=== PATIENT | male | born 1980 | race Caucasian/White ===

== ENCOUNTER 2017-03-15 07:40 | Emergency (ER) | payer SELFPAY ==
[2017-03-15 08:27] LABS: Bilirubin Negative (Negative); Blood, Urine Large (Negative); Glucose, Urine (Dipstick) Negative (Negative); Leukocyte Negative (Negative); Nitrite Negative (Negative); Protein, Urine (Dipstick) Negative (Neg-Trace); Urobilinogen 0.2 mg/dL (0.2-1.0)
[2017-03-15 08:34] LABS: Clarity Slightly Cloudy (Clear)
[2017-03-15 08:35] LABS: Bacteria/HPF 1+ HPF (None Seen); RBC/HPF GREATER THAN 50-TNTC HPF (0-3)
[2017-03-15 09:35] LABS: Anion Gap 13 mmol/L (10-20); BUN (Urea Nitrogen) 14 mg/dL (8.9-20.6); Calc. Creatinine Clearance 0 mL/min (70-130); Calcium 9.4 mg/dL (7.8-10.44); Carbon Dioxide 27 mmol/L (22-29); Chloride 105 mmol/L (98-107); Estimated GFR-MDRD Greater than 90; Glucose 102 mg/dL (70-105); Potassium 4.1 mmol/L (3.5-5.1); Sodium 141 mmol/L (136-145)
[2017-03-15 09:36] LABS: Hemoglobin 13.5 g/dL (14.0-18.0); Mean Corpuscular HGB CONC 33.8 g/dL (32.0-36.0); Mean Corpuscular Hemoglobin 31.6 pg (27.0-31.0); Mean Corpuscular Volume 93.6 fl (80.0-94.0); Mean Platelet Volume 10.9 fL (7.4-10.4); Platelet Count 182 thou/uL (130-400); RBC Distribution Width 11.2 % (11.5-14.5); Red Blood Cell (RBC) Count 4.27 mill/uL (4.70-6.10); White Blood Cell (WBC) Count 5.1 thou/uL (4.8-10.8)
[2017-03-15 09:39] LABS: MDiff Complete? YES
[2017-03-15 09:45] LABS: Band 1 % (5-11); Lymphocytes 40 % (21-51); Neutrophil 52 % (42-75)
[2017-03-15 09:46] LABS: Eosinophils 4 % (0-10); Monocytes 9 % (0-10)
--- NOTE | 2017-03-15 10:18 | CT ---
PELVIC CT SCAN WITH IV CONTRAST: Date: 03/15/17 HISTORY: 37-year-old male with history of injury to perineum while weightlifting this morning. FINDINGS: No evidence for an acute pelvic fracture. The soft tissues of the perineum were not completely includ ed on this study since it did not extend caudally enough. Normal appearing appendix. No free intraper itoneal fluid or evidence for retroperitoneal hematoma within the pelvis. IMPRESSION: Unremarkable pelvic CT scan. No evidence of fracture or dislocation. No free intraperitoneal fluid or evidence for retroperitoneal hematoma. The soft tissues of the perineum were not completely included on this study. POS: [facility]
[2017-03-15] MEDS ORDERED: Iopamidol 370 76% 100 ML VIAL ONE (13:41)
== END 2017-03-15 10:40 | disposition home or self-care (01) ==
LOC: MADERS 07:40
DX: R31.9 Hematuria, unspecified (principal); F17.210 Nicotine dependence, cigarettes, uncomplicated
CPT/HCPCS: 36415; 72193; 80048; 81003; 81015; 85025; 87086

== ENCOUNTER 2017-04-05 11:40 | Emergency (ER) | payer SELFPAY ==
--- NOTE | 2017-04-05 13:29 | RAD ---
3 VIEWS RIGHT HAND: Date: 04/05/17 COMPARISON: None. HISTORY: Trauma, pain. FINDINGS: The fifth distal interphalangeal joint is fixed in flexion. There is prominent joint space narrowing with some chondral sclerosis and osteophyte formation in this region. On the lateral examination, the re is an osseous fragment measuring 2-3 mm in craniocaudal dimension along the dorsal margin of the f ifth middle phalanx distally. This could represent an age-indeterminate fracture. Clinical correlatio n is required as to point tenderness in the region of the fifth distal interphalangeal joint. There is a linear density within the subcutaneous fat dorsal to the base of the fifth metacarpal medi ally, which could represent a radiopaque foreign body or age-indeterminate small fracture fragment. There is no evidence for dislocation. IMPRESSION: 1. Abnormal appearance of the distal interphalangeal joint of the fifth finger. Acute fracture in th is region cannot be excluded. Clinical correlation is essential. 2. Linear density in the subcutaneous fat adjacent to the base of the fifth metacarpal as above. POS: [facility]
== END 2017-04-05 13:28 | disposition home or self-care (01) ==
LOC: MADERS 11:40
DX: S53.31XA Traumatic rupture of right ulnar collateral ligament, initial encounter (principal); W19.XXXA Unspecified fall, initial encounter
CPT/HCPCS: 29125

== ENCOUNTER 2019-01-12 13:40 | Emergency (ER) | payer SELFPAY ==
[2019-01-12 17:58] LABS: Bilirubin Negative (Negative); Blood, Urine Moderate (Negative); Clarity Cloudy (Clear); Glucose, Urine (Dipstick) Negative (Negative); Leukocyte Large (Negative); Nitrite Positive (Negative); Protein, Urine (Dipstick) 30 mg/dL (Neg-Trace); Urobilinogen 0.2 mg/dL (Less than 2)
[2019-01-12 18:03] LABS: WBC/HPF Greater Than 50 HPF (0-3)
[2019-01-12 18:06] LABS: Bacteria/HPF 1+ HPF (None Seen); Squamous Epithelial 0-3 HPF (0-3)
== END 2019-01-12 18:21 | disposition home or self-care (01) ==
LOC: MADERS 13:40
DX: N39.0 Urinary tract infection, site not specified (principal); Z46.6 Encounter for fitting and adjustment of urinary device; F17.210 Nicotine dependence, cigarettes, uncomplicated; Z79.899 Other long term (current) drug therapy
CPT/HCPCS: 81003; 81015; 87077; 87086; 87186; 99283

== ENCOUNTER 2019-05-24 17:25 | Emergency (ER) | payer SELFPAY ==
[2019-05-24] MEDS ORDERED: Dexamethasone 4 MG TAB ONE (18:19)
[2019-05-24] MEDS ORDERED: Acetaminophen 500 MG TAB ONE (18:19)
[2019-05-24] MEDS ORDERED: Acyclovir 200 mg Capsule ONE (18:21)
== END 2019-05-24 18:35 | disposition home or self-care (01) ==
LOC: MADERS 17:25
DX: B02.9 Zoster without complications (principal)
CPT/HCPCS: 99282; J8540

== ENCOUNTER 2023-03-03 07:52 | Emergency (ER) | payer SELFPAY ==
[2023-03-03] MEDS ORDERED: Cephalexin 500 MG CAP ONE (08:55)
[2023-03-03] MEDS ORDERED: Bacitracin 1 PK ONE (08:56)
[2023-03-03] MEDS ORDERED: Sulfameth/Trimethoprim DS 800-160mg TAB ONE (08:56)
== END 2023-03-03 09:15 | disposition home or self-care (01) ==
LOC: MADERS 07:52
DX: S61.011A Laceration without foreign body of right thumb without damage to nail, initial encounter (principal); W54.8XXA Other contact with dog, initial encounter

== ENCOUNTER 2023-03-08 12:24 | Emergency (ER) | payer SELFPAY ==
[2023-03-08] MEDS ORDERED: Tetracaine 0.5% PF 4 ML BOT ONE (12:30)
== END 2023-03-08 13:09 | disposition home or self-care (01) ==
LOC: MADERS 12:24
DX: T15.01XA Foreign body in cornea, right eye, initial encounter (principal)
CPT/HCPCS: 65220